=== PATIENT | male | born 1960 | race Asian ===

== ENCOUNTER 2021-10-30 06:40 | Emergency (ER) | payer OTHER ==
[2021-10-30 07:34] LABS: BASOPHIL 0.7 % (0-2); EOSINOPHIL 2.9 % (0-5); HCT 45.7 % (42.0-52.0); HGB 15.9 g/dl (13.2-18.0); LYMPHOCYTE 32.7 % (15-48); MCHC 34.8 g/dL (32.0-36.0); MCV 86.2 fL (78.0-100.0); MPV 9.8 fL (6.0-9.5); NEUTROPHIL 56.1 % (41-80); NRBC 0; PLT 334 K/uL (150-400); RDW 11.9 % (11.5-14.0); WBC 11.9 K/uL (4.0-10.5)
[2021-10-30 08:00] LABS: BUN/CREAT RATIO (CALC) 22.2 RATIO; CREATININE 0.72 mg/dL (0.67-1.17); POTASSIUM 3.8 mmol/L (3.5-5.1)
== END 2021-10-30 09:00 | disposition other institution (70) ==
LOC: FER 06:40
PROVIDERS: Internal Medicine
DX: S06.0X0A Concussion without loss of consciousness, initial encounter (principal); S22.32XA Fracture of one rib, left side, initial encounter for closed fracture; S01.112A Laceration without foreign body of left eyelid and periocular area, initial encounter; Z23 Encounter for immunization; Z20.822 Contact with and (suspected) exposure to COVID-19; V49.40XA Driver injured in collision with unspecified motor vehicles in traffic accident, initial encounter; Y92.410 Unspecified street and highway as the place of occurrence of the external cause
CPT/HCPCS: 36415; 70450; 70486; 71260; 73030; 80048; 85025; 90471; 90715; J1170; J2405; Q9967; U0002